=== PATIENT | female | born 1965 | race Caucasian/White ===

== ENCOUNTER → 2016-06-28 | Day surgery (SDC) | payer OTHER ==
[~2016-06-28] VITALS: Ht 175.3 cm; Wt 134.0 kg
[~2016-06-28] MED LIST: ALBU8.5H2 INHALATION; AMLO10TA3 PO; BACI1CAP6 PO; BIOT10003 PO; BUSP10TA2 PO; CHOL200025 PO; CITA20TA11 PO; EPIN0.3P2 IJ; HYDR25TA4 PO; KLO5T PO; LOSA25TA21 PO; LOSA50TA37 PO; MELA10CA2 PO; Sodium Chloride LOK Flush 10 mL Syringe IV PRN; VIT1TABL83 PO; fentaNYL-PF 50 mCg/mL 2 mL Inj IVPUSH PRN
[2016-06-28 12:02] VITALS: BP 145/104; PULSE 113; RESP 22; O2SAT 99
[2016-06-28] MEDS: 0.9% Sodium Chloride 1,000 ML IV SCH ×2 (12:29→13:08)
[2016-06-28 13:24] VITALS: BP 124/81; PULSE 96; RESP 14; O2SAT 94
[2016-06-28 13:30] VITALS: BP 132/80; PULSE 90; RESP 16; O2SAT 97
--- NOTE | 2016-06-28 23:51 | ENDO ---
[address] [address] ENDOSCOPY PROCEDURE PATIENT: KEVIN GRAY : 1965 MR#: [id number] ADMIT: 06/28/2016 JOB ID: [id number] PRIMARY PROVIDER: DAYLIN Snow PROCEDURE: Colonoscopy with cold forceps polypectomies. INDICATIONS: A 50-year-old female who reports for colon cancer screening. EQUIPMENT: PCF-H180-AL. SEDATION: 4 mg Versed and 100 mcg fentanyl. COMPLICATIONS: None identified. BOWEL PREPARATION: Fair, adequate exam. PROCEDURAL INFORMATION: After the risks and benefits were explained, written and verbal informed consent was obtained. The patient was brought into the endoscopy suite and placed into the left lateral decubitus position. Sedation was achieved as above. A digital rectal examination accomplished. No significant pathology appreciated. The scope was introduced into the rectum and advanced to the cecum as identified by the appendiceal orifice and ileocecal valve. The scope was slowly withdrawn to carefully examine the mucosa for any defects or lesions. Multiple direct views were made through the dentate line for exclusion of pathology. The colon was decompressed, the scope removed from the patient who tolerated the procedure well. FINDINGS: There was some scattered diverticula in the left colon. In the rectosigmoid region, there were two very diminutive polyps removed with cold forceps. No other significant pathology was appreciated throughout. ENDOSCOPIC DIAGNOSES: 1. Diverticulosis. 2. Colon polyps. RECOMMENDATIONS: 1. Await histopathology. 2. If either of these demonstrate adenomatous features, repeat colonoscopy five years. If both are hyperplastic, repeat colonoscopy 10 years', sooner should symptoms warrant.
--- NOTE | 2016-06-30 11:25 | PATH ---
SURGICAL PATHOLOGY Attending Physician:Bernabe Blair CASE STATUS: Signed Out PATIENT NAME: KEVIN GRAY PID: [id number] : 1965 DATE COLLECTED:06/28/2016 20:50 SPECIMEN: Colon, Biopsy CLINICAL HISTORY: COLON POLYP 1). RECTOSIGMOID POLYPS FINAL DIAGNOSIS: 1.RECTOSIGMOID POLYPS: HYPERPLASTIC POLYPS INVOLVING TWO BIOPSY FRAGMENTS. ICD10 CODE K63.5 GROSS DESCRIPTION: The specimen is received in one formalin filled container labeled with the patient's name, sublabeled "recto sigmoid colon polyps" and consists of 2 portions of tissue which aggregate to 0.3 x 0.3 x 0.2 CM. The specimen is entirely submitted in one cassette. 06/28/2016 [facility] MICRO DESCRIPTION: See diagnosis. ICD-9 CODES: CPT CODES: 1: 27330 Electronically Signed Out Rian Gonzalez MD [facility] Pathology [facility] [address], [place] [address] Technical component performed at [facility], [facility] [address], [address]
== END | disposition home or self-care (01) ==
LOC: END 00:29
PROVIDERS: ATTEND Internal Medicine Gastroenterology
DX: Z12.11 Encounter for screening for malignant neoplasm of colon (principal); K63.5 Polyp of colon; K57.30 Diverticulosis of large intestine without perforation or abscess without bleeding; I10 Essential (primary) hypertension; J45.998 Other asthma
CPT/HCPCS: 45380; 99153; G0500; J2250; J3010; J7030